=== PATIENT | female | born 2000 | race Caucasian/White ===

== ENCOUNTER 2024-06-20 19:37 | Emergency (ER) | payer OTHER ==
[~2024-06-20] VITALS: Ht 160 cm; Wt 59.1 kg
[2024-06-20 20:44] VITALS: BP 106/70
== END 2024-06-20 20:52 | disposition home or self-care (01) ==
LOC: ED 19:37
DX: S60.414A Abrasion of right ring finger, initial encounter (principal); Z23 Encounter for immunization; W23.0XXA Caught, crushed, jammed, or pinched between moving objects, initial encounter
CPT/HCPCS: 90715

== ENCOUNTER 2024-06-30 09:15 | Emergency (ER) | payer OTHER ==
[~2024-06-30] VITALS: Ht 160 cm; Wt 61.4 kg
[2024-06-30] MEDS ORDERED: MUPIROCIN2% TP (10:35)
[2024-06-30] MEDS ORDERED: AMOXICILLIN AND1 TA2 PO (10:36)
[2024-06-30 11:18] VITALS: BP 116/87
== END 2024-06-30 11:24 | disposition home or self-care (01) ==
LOC: ED 09:15
DX: S91.201A Unspecified open wound of right great toe with damage to nail, initial encounter (principal); Z88.1 Allergy status to other antibiotic agents; W22.03XA Walked into furniture, initial encounter